=== PATIENT | female | born 1930 | race Native Hawaiian/Other Pacific Islander ===

== ENCOUNTER 2017-06-03 12:15 | Inpatient (IN) | payer MEDICARE, OTHER ==
[~2017-06-03] VITALS: Ht 147.3 cm; Wt 53.3 kg
[~2017-06-03 12:15] MED LIST: ALLER-TEC PO; AMLO2.5T PO; B-COCAP6 PO; CHOL50008 PO; HYDR-3516 PO; IPRASOL INH; LEVO88TA2 PO; LORA1TAB12 PO; METO-309 PO; OMEP20TA PO; STOOL SOFTENERS PO; TRAM50TA PO
[2017-06-03 12:20] VITALS: BP 132/98; PULSE 78; RESP 18; TEMP 97.8
[2017-06-03] MEDS ORDERED: FOLI800T PO (12:23)
[2017-06-03] MEDS ORDERED: CHOL5000 PO (12:23)
--- NOTE | 2017-06-03 12:47 | PD ---
HPI Chief Complaint: abdominal pain Time Seen by Provider: 12:42 Travel History International Travel<30 days: No Contact w/Intl Traveler<30days: No Traveled to known affect area: No History of Present Illness HPI This 86-year-old female has multiple complaints. She's been having burning in her mouth and some vaginal burning for at least a few weeks. She had some nausea this morning and was complaining of some pain across her abdomen. She has a history of pulmonary fibrosis. She went to her doctor this morning for evaluation of this burning. Apparently her urinalysis was negative. She has had an appendectomy in the past. She has a history of anemia. She has frequent coughing. PFSH Past Medical History Anemia: Yes Diminished Hearing: Yes (MAKAH) Genitourinary: Yes (CKD stage 3 ) Herniated Disk: Yes (DEGENERATIVE DISC DISEASE) Hypertension: Yes Respiratory: Yes (PULMONARY FIBROSIS) Immunizations Current: Yes Thyroid Disease: Yes Past Surgical History Eye Surgery: Yes Hysterectomy: Yes Other Surgery: Yes (VAGINAL REPAIR) Social History Alcohol Use: No Tobacco Use: No Substance Use: No Allergies-Medications (Allergen,Severity, Reaction): Coded Allergies: gabapentin (Unverified Allergy, Severe, "I PASS OUT", 06/03/17) shellfish derived (Unverified Allergy, Unknown, 06/03/17) Reported Meds & Prescriptions Reported Meds & Active Scripts Active Reported Guaifenesin 400 Mg Tab 600 Mg PO DAILY Folic Acid 0.8 Mg Tab 800 Mcg PO DAILY Vitamin D3 (Cholecalciferol) 5,000 Unit Cap 5,000 Units PO DAILY Hydrocodone-Acetaminophen 5-325 mg Tab 1 Tab PO Q6H PRN Lorazepam 1 Mg Tab 1-2 Mg PO HS PRN Omeprazole 20 Mg Tab 20 Mg PO DAILY Duoneb (Ipratropium-Albuterol Neb) 0.5-2.5 Mg/3 Ml Neb 1 Nebule INH DAILY [Stool Softeners] 1 Tab PO HS PRN Lopressor (Metoprolol Tartrate) 50 Mg Tab 12.5 Mg PO BID [Aller-Riley] 1 Tab PO DAILY Tramadol (Tramadol HCl) 50 Mg Tab 50 Mg PO Q8HR PRN Levothyroxine (Levothyroxine Sodium) 88 Mcg Tab 88 Mcg PO DAILY B-Complex W/ Folic Acid 1 Cap 1 Cap PO DAILY Amlodipine (Amlodipine Besylate) 2.5 Mg Tab 2.5 Mg PO DAILY PRN FOR SYSTOLIC BP GREATER THAN 160 Review of Systems General / Constitutional: No: Fever, Chills Eyes: No: Diploplia, Blurred Vision HENT: Positive: Headaches Cardiovascular: No: Chest Pain or Discomfort, Palpitations Respiratory: No: Cough Gastrointestinal: Positive: Nausea, Abdominal Pain Genitourinary: No: Urgency Musculoskeletal: No: Myalgias, Arthralgias Skin: No Rash, No Itching Endocrine: No: Heat Intolerance Hematologic/Lymphatic: No: Easy Bruising Physical Exam Narrative GENERAL: Well-developed female. She has a fairly persistent hacking cough SKIN: Focused skin assessment warm/dry. HEAD: Atraumatic. Normocephalic. EYES: Pupils equal and round. No scleral icterus. No injection or drainage. ENT: No nasal bleeding or discharge. Mucous membranes pink and moist. NECK: Trachea midline. No JVD. CARDIOVASCULAR: Regular rate and rhythm. No murmur appreciated. RESPIRATORY: No accessory muscle use. Clear to auscultation. Breath sounds equal bilaterally. GASTROINTESTINAL: Abdomen soft, she has some epigastric and right upper quadrant tenderness, nondistended. Hepatic and splenic margins not palpable. Pelvic: There is slight white discharge. MUSCULOSKELETAL: No obvious deformities. No clubbing. No cyanosis. No edema. NEUROLOGICAL: Awake and alert. No obvious cranial nerve deficits. Motor grossly within normal limits. Normal speech. PSYCHIATRIC: Appropriate mood and affect; insight and judgment normal. Data Data Last Documented VS Vital Signs Date Time Temp Pulse Resp B/P (MAP) Pulse Ox O2 Delivery O2 Flow Rate FiO2 06/03/17 14:14 85 20 174/87 (116) 100 Room Air 06/03/17 12:20 97.8 Orders Orders Electrocardiogram (06/03/17 12:43) Complete Blood Count With Diff (06/03/17 12:43) Comprehensive Metabolic Panel (06/03/17 12:43) Troponin I (06/03/17 12:43) Lipase (06/03/17 12:43) Urinalysis - C+S If Indicated (06/03/17 12:43) Ct Brain W/O Iv Contrast(Rout) (06/03/17 12:43) Ct Abd/Pel W Iv Contrast(Rout) (06/03/17 12:45) Wet Prep Profile (06/03/17 13:30) Ondansetron Inj (Zofran Inj) (06/03/17 14:30) Morphine Inj (Morphine Inj) (06/03/17 14:30) Iohexol 350 Inj (Omnipaque 350 Inj) (06/03/17 14:45) Admit Order (Ed Use Only) (06/03/17 15:37) Labs Laboratory Tests Test 06/03/17 12:58 06/03/17 13:30 06/03/17 15:08 White Blood Count 11.4 TH/MM3 Red Blood Count 3.48 MIL/MM3 Hemoglobin 10.8 GM/DL Hematocrit 32.2 % Mean Corpuscular Volume 92.5 FL Mean Corpuscular Hemoglobin 31.0 PG Mean Corpuscular Hemoglobin Concent 33.5 % Red Cell Distribution Width 13.1 % Platelet Count 420 TH/MM3 Mean Platelet Volume 6.8 FL Neutrophils (%) (Auto) 67.9 % Lymphocytes (%) (Auto) 21.5 % Monocytes (%) (Auto) 6.6 % Eosinophils (%) (Auto) 0.6 % Basophils (%) (Auto) 3.4 % Neutrophils # (Auto) 7.6 TH/MM3 Lymphocytes # (Auto) 2.5 TH/MM3 Monocytes # (Auto) 0.8 TH/MM3 Eosinophils # (Auto) 0.1 TH/MM3 Basophils # (Auto) 0.4 TH/MM3 CBC Comment DIFF FINAL Differential Comment Clue Cells (Wet Prep) NONE SEEN Vaginal Trichomonas (Wet Prep) NONE SEEN Vaginal Yeast (Wet Prep) NONE SEEN Blood Urea Nitrogen 20 MG/DL Creatinine 1.20 MG/DL Random Glucose 99 MG/DL Total Protein 7.8 GM/DL Albumin 3.9 GM/DL Calcium Level 9.9 MG/DL Alkaline Phosphatase 69 U/L Aspartate Amino Transf (AST/SGOT) 31 U/L Alanine Aminotransferase (ALT/SGPT) 22 U/L Total Bilirubin 0.5 MG/DL Sodium Level 122 MEQ/L Potassium Level 3.9 MEQ/L Chloride Level 87 MEQ/L Carbon Dioxide Level 24.3 MEQ/L Anion Gap 11 MEQ/L Estimat Glomerular Filtration Rate 43 ML/MIN Troponin I LESS THAN 0.02 NG/ML Lipase 239 U/L Urine Color YELLOW Urine Turbidity CLEAR Urine pH 7.5 Urine Specific [place] 1.015 Urine Protein NEG mg/dL Urine Glucose (UA) NEG mg/dL Urine Ketones NEG mg/dL Urine Occult Blood MOD Urine Nitrite NEG Urine Bilirubin NEG Urine Leukocyte Esterase NEG Urine RBC 4-9 /hpf Urine Squamous Epithelial Cells 0-5 /hpf Urine Mucus FEW /lpf Microscopic Urinalysis Comment CULT NOT INDICATED MDM Medical Decision Making Medical Screen Exam Complete: Yes Emergency Medical Condition: Yes Medical Record Reviewed: Yes Differential Diagnosis Differential includes cholecystitis, gastritis, Narrative Course Sodium is 122. Patient has previously had hyponatremia though recently she has been normal. She is having symptoms of nausea and headache. A CT scan of the head has been obtained and is read as negative. CT of the abdomen and pelvis does not show any acute process. Diagnosis Primary Impression: Hyponatremia Tae Whitt MD Jun 03, 2017 12:47
[2017-06-03] MEDS ORDERED: GUAI400T8 PO (12:59)
[2017-06-03 13:03] LABS: AUTOMATED NEUTROPHIL # 7.6 TH/MM3 (1.8-7.7); BASOPHIL # 0.4 TH/MM3 (0-0.2); BASOPHIL % 3.4 % (0.0-2.0); EOSINOPHIL # 0.1 TH/MM3 (0-0.4); EOSINOPHIL % 0.6 % (0.0-4.0); HEMATOCRIT 32.2 % (35.0-46.0); LYMPH % 21.5 % (9.0-44.0); LYMPHOCYTE # 2.5 TH/MM3 (1.0-4.8); MEAN CELL VOLUME 92.5 FL (80.0-100.0); MEAN CORPUSCULAR HGB CONC 33.5 % (32.0-36.0); MONO % 6.6 % (0.0-8.0); NEUT % 67.9 % (16.0-70.0); PLATELET COUNT 420 TH/MM3 (150-450); RED BLOOD COUNT 3.48 MIL/MM3 (4.00-5.30); RED CELL DISTRIBUTION WIDTH 13.1 % (11.6-17.2); WHITE BLOOD COUNT 11.4 TH/MM3 (4.0-11.0)
[2017-06-03 13:15] LABS: HEMO FLAGS DIFF FINAL
[2017-06-03 14:10] LABS: ALKALINE PHOSPHATASE 69 U/L (45-117); ALT (GPT) 22 U/L (10-53); ANION GAP 11 MEQ/L (5-15); AST (GOT) 31 U/L (15-37); BICARBONATE 24.3 MEQ/L (21.0-32.0); BLOOD UREA NITROGEN 20 MG/DL (7-18); CHLORIDE 87 MEQ/L (98-107); GLOMERULAR FILTRATION RATE 43 ML/MIN (>89); POTASSIUM 3.9 MEQ/L (3.5-5.1); TOTAL BILIRUBIN ADULT 0.5 MG/DL (0.2-1.0)
[2017-06-03 14:12] LABS: SODIUM (NA) 122 MEQ/L (136-145)
[2017-06-03 14:14] VITALS: BP 174/87; PULSE 85; RESP 20; O2SAT 100
[2017-06-03] MEDS ORDERED: MORPHINE SULFATE 4 MG/ML INJ IV PUSH ONE (14:30)
[2017-06-03] MEDS ORDERED: ONDANSETRON HCL 4 MG/2 ML VIAL IV PUSH ONE (14:30)
[2017-06-03] MEDS ORDERED: IOHEXOL 350 MG/ML 10 ML VIAL (for RAD DIAG) IVCONTRAST ONE (14:45)
--- NOTE | 2017-06-03 15:12 | RADRPT ---
EXAM DATE/TIME: 06/03/2017 14:40 [facility] COMPARISON: No previous studies available for comparison. INDICATIONS : Altered mental status. RADIATION DOSE: 56.38 CTDIvol (mGy) MEDICAL HISTORY : Hypertension. SURGICAL HISTORY : Appendectomy. Oopherectomy. ENCOUNTER: Initial ACUITY: 1 day PAIN SCALE: 0/10 LOCATION: cranial TECHNIQUE: Multiple contiguous axial images were obtained of the head. Using automated exposure control and adj ustment of the mA and/or kV according to patient size, radiation dose was kept as low as reasonably a chievable to obtain optimal diagnostic quality images. DICOM format image data is available electro nically for review and comparison. FINDINGS: CEREBRUM: The ventricles are normal for age. No evidence of midline shift, mass lesion, hemorrhage or acute in farction. No extra-axial fluid collections are seen. POSTERIOR FOSSA: The cerebellum and brainstem are intact. The 4th ventricle is midline. The cerebellopontine angle i s unremarkable. EXTRACRANIAL: The visualized portion of the orbits is intact. SKULL: The calvaria is intact. No evidence of skull fracture. CONCLUSION: Normal examination. Hi Bass MD on June 03, 2017 at 15:10 Board Certified Radiologist. This report was verified electronically.
--- NOTE | 2017-06-03 15:13 | RADRPT ---
EXAM DATE/TIME: 06/03/2017 14:45 [facility] COMPARISON: No previous studies available for comparison. INDICATIONS : Right abdominal pain and burning with urination. IV CONTRAST: 85 cc Omnipaque 350 (iohexol) IV ORAL CONTRAST: No oral contrast ingested. RADIATION DOSE: 7.99 CTDIvol (mGy) MEDICAL HISTORY : Hypertension. SURGICAL HISTORY : Appendectomy. Oopherectomy. ENCOUNTER: Initial ACUITY: 1 day PAIN SCALE: 5/10 LOCATION: Right abdomen TECHNIQUE: Volumetric scanning of the abdomen and pelvis was performed. Using automated exposure control and ad justment of the mA and/or kV according to patient size, radiation dose was kept as low as reasonably achievable to obtain optimal diagnostic quality images. DICOM format image data is available electro nically for review and comparison. FINDINGS: There is subpleural interstitial prominence at the lung bases and respiratory motion artifact. Degene rative changes of the spine are noted. No pleural or pericardial effusions. Liver, gallbladder, bilat eral kidneys, spleen, pancreas, adrenal glands are unremarkable. Urinary bladder is unremarkable. The patient is status post hysterectomy. No evidence of bowel obstruction. A few diverticuli are noted i n the sigmoid colon. There is no lymphadenopathy. No aneurysm. Atherosclerotic calcifications of the aorta and iliac vessels are noted. CONCLUSION: 1. Atherosclerosis. 2. Motion artifact. 3. Minimal diverticulosis of the sigmoid colon. 4. All the ulnar interstitial prominence. 5. No obvious inflammatory changes in the abdomen or pelvis. Hi Bass MD on June 03, 2017 at 15:10 Board Certified Radiologist. This report was verified electronically.
[2017-06-03 15:14] LABS: BLOOD, URINE MOD (NEG); GLUCOSE,URINE NEG (NEG); KETONE, URINE NEG (NEG); NITRITE,URINE NEG (NEG); PH, URINE 7.5 (5.0-8.5)
[2017-06-03 15:38] LABS: MUCUS URINE FEW /lpf (OCC); URINE COLOR YELLOW (YELLW/STRAW)
[2017-06-03 15:39] LABS: COMMENT (UR) CULT NOT INDICATED; CULTURE IF INDICATED CULT NOT INDICATED; SQUAMOUS EPITHELIAL CELL URINE 0-5 /hpf (0-5)
[2017-06-03] MEDS ORDERED: traMADol HCL 50 MG TAB PO PRN (16:30)
[2017-06-03] MEDS ORDERED: SODIUM CHLORIDE 0.9% FLUSH 10 ML FLUSH IV FLUSH PRN (16:30)
[2017-06-03] MEDS ORDERED: amLODIPine BESYLATE 5 MG TAB PO PRN (16:30)
[2017-06-03] MEDS ORDERED: NALOXONE HCL 0.4 MG/ML AMP IV PUSH PRN (16:30)
[2017-06-03] MEDS ORDERED: PILL SPLITTER OTHER PRN (16:45)
[2017-06-03] MEDS: SODIUM CHLOR 0.9% 1000 ML INJ 1,000 ML IV SCH (17:00)
[2017-06-03 17:07] VITALS: BP 170/57
[2017-06-03 18:00] VITALS: BP 183/83; PULSE 88; RESP 24; TEMP 96.5; O2SAT 100
--- NOTE | 2017-06-03 18:14 | HHI.HP ---
[facility] Service [facility] Primary Care Physician Med Woo MD Admission Diagnosis HYPONATREMIA Diagnoses: Chief Complaint: Nausea Travel History International Travel<30 Days: No Contact w/Intl Traveler <30 Da: No Traveled to Known Affected Are: No History of Present Illness Patient is a very pleasant 86-year-old female with a history of chronic pulmonary fibrosis and chronic osteoarthritis and chronic kidney disease. Patient was seen well and without complaint yesterday afternoon by her caregiver. Today she had abdominal discomfort and nausea. She had a primary doctor's appointment today and was sent urgently to the hospital. She is hyponatremic which is not unusual for her. I spoke with her primary auto air conditioning installer and her renal function is about at baseline. She has complained of chills without fever. She notes that the nausea has subsided on its own. She has chronic coughing, and there is nothing new per the patient symptomatically with her respiratory system. 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 She is a good historian although she uses hearing aids. She has continued with her medications without incident. Patient been admitted to the hospital due to her hyponatremia Review of Systems Constitutional: DENIES: Diaphoretic episodes, Fatigue, Fever, Weight gain, Weight loss, Chills, Dizziness, Change in appetite, Night Sweats Endocrine: DENIES: Abnorml menstrual pattern, Heat/cold intolerance, Polydipsia , Polyuria, Polyphagia Eyes: DENIES: Blurred vision, Diplopia, Eye inflammation, Eye pain, Vision loss , Photosensitivity, Double Vision Ears, nose, mouth, throat: DENIES: Tinnitus, Hearing loss, Vertigo, Nasal discharge, Oral lesions, Throat pain, Hoarseness, Ear Pain, Running Nose, Epistaxis, Sinus Pain, Toothache, Odynophagia Respiratory: DENIES: Apneas, Cough, Snoring, Wheezing, Hemoptysis, Sputum production, Shortness of breath Cardiovascular: DENIES: Chest pain, Palpitations, Syncope, Dyspnea on Exertion , PND, Lower Extremity Edema, Orthopnea, Claudication Gastrointestinal: COMPLAINS OF: Nausea, Vomiting, DENIES: Abdominal pain, Black stools, Bloody stools, Constipation, Diarrhea, Difficulty Swallowing, Anorexia Genitourinary: DENIES: Abnormal vaginal bleeding, Dysmenorrhea, Dyspareunia, Sexual dysfunction, Urinary frequency, Urinary incontinence, Urgency, Hematuria , Dysuria, Nocturia, Vaginal discharge Musculoskeletal: DENIES: Joint pain, Muscle aches, Stiffness, Joint Swelling, Back pain, Neck pain Integumentary: DENIES: Abnormal pigmentation, Pruritus, Rash, Nail changes, Breast masses, Breast skin changes, Nipple discharge Hematologic/lymphatic: DENIES: Bruising, Lymphadenopathy Immunologic/allergic: DENIES: Eczema, Urticaria Neurologic: DENIES: Abnormal gait, Headache, Localized weakness, Paresthesias, Seizures, Speech Problems, Tremor, Poor Balance Psychiatric: DENIES: Anxiety, Confusion, Mood changes, Depression, Hallucinations, Agitation, Suicidal Ideation, Homicidal Ideation, Delusions Except as stated in HPI: all other systems reviewed are Neg Past Family Social History Past Medical History Pulmonary fibrosis Chronic pain Degenerative arthritis Chronic kidney disease Hypothyroidism Past Surgical History Vaginal repair Cataract surgery Reported Medications Reviewed in the EMR, nothing new per patient Allergies: Coded Allergies: gabapentin (Unverified Allergy, Severe, "I PASS OUT", 06/03/17) shellfish derived (Unverified Allergy, Unknown, 06/03/17) Active Ordered Medications Reviewed in the EMR Family History Family history of hypertension Social History No current tobacco or alcohol dependency, lives with 2 caregivers Physical Exam Vital Signs Vital Signs Date Time Temp Pulse Resp B/P (MAP) Pulse Ox O2 Delivery O2 Flow Rate FiO2 06/03/17 17:07 80 18 170/57 (94) 100 06/03/17 14:14 85 20 174/87 (116) 100 Room Air 06/03/17 12:20 97.8 78 18 132/98 (109) Physical Exam GENERAL: This is a well-nourished, well-developed patient, in no apparent distress. SKIN: No rashes, ecchymoses or lesions. Cool and dry. HEAD: Atraumatic. Normocephalic. No temporal or scalp tenderness. EYES: Pupils equal round and reactive. Extraocular motions intact. No scleral icterus. No injection or drainage. ENT: Nose without bleeding, purulent drainage or septal hematoma. Throat without erythema, tonsillar hypertrophy or exudate. Uvula midline. Airway patent. NECK: Trachea midline. No JVD or lymphadenopathy. Supple, nontender, no meningeal signs. CARDIOVASCULAR: Regular rate and rhythm without murmurs, gallops, or rubs. RESPIRATORY: Clear to auscultation. Breath sounds equal bilaterally. No wheezes , rales, or rhonchi. GASTROINTESTINAL: Abdomen soft, non-tender, nondistended. No hepato-splenomegaly , or palpable masses. No guarding. MUSCULOSKELETAL: Extremities without clubbing, cyanosis, or edema. No joint tenderness, effusion, or edema noted. No calf tenderness. Negative Homans sign bilaterally. NEUROLOGICAL: Awake and alert. Cranial nerves II through XII intact. Motor and sensory grossly within normal limits. Five out of 5 muscle strength in all muscle groups. Normal speech. Laboratory Laboratory Tests Test 06/03/17 12:58 06/03/17 13:30 06/03/17 15:08 White Blood Count 11.4 Red Blood Count 3.48 Hemoglobin 10.8 Hematocrit 32.2 Mean Corpuscular Volume 92.5 Mean Corpuscular Hemoglobin 31.0 Mean Corpuscular Hemoglobin Concent 33.5 Red Cell Distribution Width 13.1 Platelet Count 420 Mean Platelet Volume 6.8 Neutrophils (%) (Auto) 67.9 Lymphocytes (%) (Auto) 21.5 Monocytes (%) (Auto) 6.6 Eosinophils (%) (Auto) 0.6 Basophils (%) (Auto) 3.4 Neutrophils # (Auto) 7.6 Lymphocytes # (Auto) 2.5 Monocytes # (Auto) 0.8 Eosinophils # (Auto) 0.1 Basophils # (Auto) 0.4 CBC Comment DIFF FINAL Differential Comment Clue Cells (Wet Prep) NONE SEEN Vaginal Trichomonas (Wet Prep) NONE SEEN Vaginal Yeast (Wet Prep) NONE SEEN Blood Urea Nitrogen 20 Creatinine 1.20 Random Glucose 99 Total Protein 7.8 Albumin 3.9 Calcium Level 9.9 Alkaline Phosphatase 69 Aspartate Amino Transf (AST/SGOT) 31 Alanine Aminotransferase (ALT/SGPT) 22 Total Bilirubin 0.5 Sodium Level 122 Potassium Level 3.9 Chloride Level 87 Carbon Dioxide Level 24.3 Anion Gap 11 Estimat Glomerular Filtration Rate 43 Troponin I LESS THAN 0.02 Lipase 239 Urine Color YELLOW Urine Turbidity CLEAR Urine pH 7.5 Urine Specific [place] 1.015 Urine Protein NEG Urine Glucose (UA) NEG Urine Ketones NEG Urine Occult Blood MOD Urine Nitrite NEG Urine Bilirubin NEG Urine Leukocyte Esterase NEG Urine RBC 4-9 Urine Squamous Epithelial Cells 0-5 Urine Mucus FEW Microscopic Urinalysis Comment CULT NOT INDICATED Result Diagram: 06/03/17 1258 06/03/17 1330 Imaging Last Impressions Abdomen/Pelvis CT 06/03/17 1245 Signed Impressions: Service Date/Time: Saturday, June 03, 2017 14:45 - CONCLUSION: 1. Atherosclerosis. 2. Motion artifact. 3. Minimal diverticulosis of the sigmoid colon. 4. All the ulnar interstitial prominence. 5. No obvious inflammatory changes in the abdomen or pelvis. Hi Bass MD Head CT 06/03/17 1243 Signed Impressions: Service Date/Time: Saturday, June 03, 2017 14:40 - CONCLUSION: Normal examination. Hi Bass MD Caprini VTE Risk Assessment Caprini VTE Risk Assessment: Mod/High Risk (score >= 2) Caprini Risk Assessment Model Point Value = 1 Point Value = 2 Point Value = 3 Point Value = 5 Age 41-60 Minor surgery BMI > 25 kg/m2 Swollen legs Varicose veins or History of unexplained or recurrent spontaneous Oral contraceptives or hormone replacement Sepsis (< 1 month) Serious lung disease, including pneumonia (< 1 month) Abnormal pulmonary function Acute myocardial infarction Congestive heart failure (< 1 month) History of inflammatory bowel disease Medical patient at bed rest Age 61-74 Arthroscopic surgery Major open surgery (> 45 min) Laparoscopic surgery (> 45 min) Malignancy Confined to bed (> 72 hours) Immobilizing plaster cast Central venous access Age >= 75 History of VTE Family history of VTE Factor V Leiden Prothrombin [id number] Lupus anticoagulant Anticardiolipin antibodies Elevated serum homocysteine Heparin-induced thrombocytopenia Other congenital or acquired thrombophilia Stroke (< 1 month) Elective arthroplasty Hip, pelvis, or leg fracture Acute spinal cord injury (< 1 month) Prophylaxis Regimen Total Risk Factor Score Risk Level Prophylaxis Regimen 0-1 Low Early ambulation 2 Moderate Order ONE of the following: *Sequential Compression Device (SCD) *Heparin 5000 units SQ BID 3-4 Higher Order ONE of the following medications: *Heparin 5000 units SQ TID *Enoxaparin/Lovenox 40 mg SQ daily (WT < 150 kg, CrCl > 30 mL/min) *Enoxaparin/Lovenox 30 mg SQ daily (WT < 150 kg, CrCl > 10-29 mL/min) *Enoxaparin/Lovenox 30 mg SQ BID (WT < 150 kg, CrCl > 30 mL/min) AND/OR *Sequential Compression Device (SCD) 5 or more Highest Order ONE of the following medications: *Heparin 5000 units SQ TID (Preferred with Epidurals) *Enoxaparin/Lovenox 40 mg SQ daily (WT < 150 kg, CrCl > 30 mL/min) *Enoxaparin/Lovenox 30 mg SQ daily (WT < 150 kg, CrCl > 10-29 mL/min) *Enoxaparin/Lovenox 30 mg SQ BID (WT < 150 kg, CrCl > 30 mL/min) AND *Sequential Compression Device (SCD) Assessment and Plan Problem List: (1) Weakness ICD Code: R53.1 - Weakness Plan: Likely due to chronic medical problems, will follow-up for organic issues Continue with PT/OT eval Continue home medications for thyroid disease and for chronic medical problems (2) Pulmonary fibrosis ICD Code: J84.10 - Pulmonary fibrosis, unspecified Plan: Continue patient's respiratory treatments, no evidence of decompensation at this time (3) CKD (chronic kidney disease) ICD Code: N18.9 - Chronic kidney disease, unspecified Plan: Care plan discussed with her primary doctor Dr. taylor, renal function about baseline. Continue with home medications and follow urine output Avoid nephrotoxins Urinalysis within normal limits (4) Elevated blood pressure reading ICD Code: R03.0 - Elevated blood-pressure reading, without diagnosis of hypertension Plan: May be underlying hypertension We'll add Norvasc Code Status full code Discussed Condition With ER MD, patient, primary care md Physician Certification 2 Midnight Certification Type: Admission for Inpatient Services Order for Inpatient Services The services are ordered in accordance with Medicare regulations or non- Medicare payer requirements, as applicable. In the case of services not specified as inpatient-only, they are appropriately provided as inpatient services in accordance with the 2-midnight benchmark. Estimated LOS (days): 3 3 days is the estimated time the patient will need to remain in the hospital, assuming treatment plan goals are met and no additional complications. Post-Hospital Plan: Not yet determined Nirmala Howell MD Jun 03, 2017 18:14
[2017-06-03] MEDS ORDERED: amLODIPine BESYLATE 5 MG TAB PO ONE (18:15)
[2017-06-03] MEDS: PANTOPRAZOLE SOD 40 MG DELAYED RELEASE TAB PO SCH (18:27)
[2017-06-03] MEDS: HEPARIN SODIUM - SQ 10,000 UNITS/ML VIAL SQ SCH (18:27)
[2017-06-03 20:00] VITALS: BP 119/56; PULSE 78; RESP 20; TEMP 96.2; O2SAT 99
[2017-06-03] MEDS: RESP: ALBUTEROL 2.5 MG/IPRATROPIUM 0.5 MG NEB (SCH) NEB (20:07)
[2017-06-03] MEDS: METOPROLOL TARTRATE 25 MG TAB PO SCH (20:11)
[2017-06-03] MEDS: SODIUM CHLORIDE 0.9% FLUSH 10 ML FLUSH IV FLUSH SCH (20:12)
[2017-06-04] MEDS: SODIUM CHLOR 0.9% 1000 ML INJ 1,000 ML IV SCH (02:40)
[2017-06-04] MEDS: HEPARIN SODIUM - SQ 10,000 UNITS/ML VIAL SQ SCH (05:09)
[2017-06-04] MEDS ORDERED: LEVOTHYROXINE SODIUM 88 MCG TAB PO SCH (06:00)
[2017-06-04] MEDS: RESP: ALBUTEROL 2.5 MG/IPRATROPIUM 0.5 MG NEB (SCH) NEB ×2 (07:58→13:13)
[2017-06-04 08:00] VITALS: BP 194/79; PULSE 96; RESP 20; TEMP 98; O2SAT 100
[2017-06-04 08:41] LABS: AUTOMATED NEUTROPHIL # 5.7 TH/MM3 (1.8-7.7); BASOPHIL # 0.1 TH/MM3 (0-0.2); BASOPHIL % 0.6 % (0.0-2.0); EOSINOPHIL # 0.2 TH/MM3 (0-0.4); EOSINOPHIL % 1.9 % (0.0-4.0); HEMATOCRIT 27.3 % (35.0-46.0); HEMO FLAGS DIFF FINAL; LYMPH % 26.5 % (9.0-44.0); LYMPHOCYTE # 2.5 TH/MM3 (1.0-4.8); MEAN CELL VOLUME 92.5 FL (80.0-100.0); MEAN CORPUSCULAR HEMOGLOBIN 30.7 PG (27.0-34.0); MEAN CORPUSCULAR HGB CONC 33.2 % (32.0-36.0); MONO % 8.8 % (0.0-8.0); NEUT % 62.2 % (16.0-70.0); PLATELET COUNT 380 TH/MM3 (150-450); RED BLOOD COUNT 2.95 MIL/MM3 (4.00-5.30); RED CELL DISTRIBUTION WIDTH 13.3 % (11.6-17.2); WHITE BLOOD COUNT 9.3 TH/MM3 (4.0-11.0)
[2017-06-04] MEDS ORDERED: amLODIPine BESYLATE 5 MG TAB PO SCH (09:00)
[2017-06-04] MEDS: PANTOPRAZOLE SOD 40 MG DELAYED RELEASE TAB PO SCH (09:12)
[2017-06-04] MEDS: SODIUM CHLORIDE 0.9% FLUSH 10 ML FLUSH IV FLUSH SCH (09:12)
[2017-06-04] MEDS: METOPROLOL TARTRATE 25 MG TAB PO SCH (09:12)
[2017-06-04] MEDS ORDERED: NAPHAZOLINE HCL 0.012% OPHT SOLN 15 ML BOTTLE EACH EYE ONE (10:15)
--- NOTE | 2017-06-04 11:15 | HHI.DCPOC ---
Discharge Care Plan Diagnosis: (1) Hyponatremia Goals to Promote Your Health * To prevent worsening of your condition and complications * To maintain your health at the optimal level Directions to Meet Your Goals Take your medications as prescribed Follow your dietary instruction Follow activity as directed Keep your appointments as scheduled Take your immunizations and boosters as scheduled If your symptoms worsen call your PCP, if no PCP go to Urgent Care Center or Emergency Room Smoking is Dangerous to Your Health. Avoid second hand smoke Call the 24-hour hour crisis hotline for domestic abuse at Nirmala Howell MD Jun 04, 2017 11:15
--- NOTE | 2017-06-04 11:15 | HHI.FF ---
Face to Face Verification Diagnosis: (1) Pulmonary fibrosis (2) Weakness Physical Therapy Order: Evaluate and Treat, Improve ambulation, Strength and gait training Home Health Nursing Order: Signs/symptoms of disease process I have seen patient Marilyn Joshi on 06/04/17. My clinical findings support the need for the requested home health care services because: Ltd mobility - disease progression Patient has SOB I certify that my clinical findings support that this patient is homebound because: Unsteady gait/balance Nirmala Howell MD Jun 04, 2017 11:15
--- NOTE | 2017-06-04 11:18 | HHI.DS ---
cc: Geo White MD Discharge Summary Admission Date Jun 03, 2017 at 15:38 Discharge Date: Jun 04, 2017 Admitting Diagnosis HYPONATREMIA (1) Weakness ICD Code: R53.1 - Weakness (2) Pulmonary fibrosis ICD Code: J84.10 - Pulmonary fibrosis, unspecified (3) CKD (chronic kidney disease) ICD Code: N18.9 - Chronic kidney disease, unspecified (4) Elevated blood pressure reading ICD Code: R03.0 - Elevated blood-pressure reading, without diagnosis of hypertension Procedures none Brief History - From Admission Patient is a very pleasant 86-year-old female with a history of chronic pulmonary fibrosis and chronic osteoarthritis and chronic kidney disease. Patient was seen well and without complaint yesterday afternoon by her caregiver. Today she had abdominal discomfort and nausea. She had a primary doctor's appointment today and was sent urgently to the hospital. She is hyponatremic which is not unusual for her. I spoke with her primary manager etl and her renal function is about at baseline. She has complained of chills without fever. She notes that the nausea has subsided on its own. She has chronic coughing, and there is nothing new per the patient symptomatically with her respiratory system. 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 She is a good historian although she uses hearing aids. She has continued with her medications without incident. Patient been admitted to the hospital due to her hyponatremia CBC/BMP: 06/04/17 0833 06/04/17 0833 Significant Findings Laboratory Tests Test 06/03/17 12:58 06/03/17 13:30 06/03/17 15:08 06/04/17 08:33 White Blood Count 11.4 TH/MM3 (4.0-11.0) Red Blood Count 3.48 MIL/MM3 (4.00-5.30) 2.95 MIL/MM3 (4.00-5.30) Hemoglobin 10.8 GM/DL (11.6-15.3) 9.1 GM/DL (11.6-15.3) Hematocrit 32.2 % (35.0-46.0) 27.3 % (35.0-46.0) Mean Platelet Volume 6.8 FL (7.0-11.0) 6.3 FL (7.0-11.0) Basophils (%) (Auto) 3.4 % (0.0-2.0) Basophils # (Auto) 0.4 TH/MM3 (0-0.2) Blood Urea Nitrogen 20 MG/DL (7-18) Creatinine 1.20 MG/DL (0.50-1.00) 1.10 MG/DL (0.50-1.00) Sodium Level 122 MEQ/L (136-145) 130 MEQ/L (136-145) Chloride Level 87 MEQ/L (98-107) Estimat Glomerular Filtration Rate 43 ML/MIN (>89) 47 ML/MIN (>89) Troponin I LESS THAN 0.02 NG/ML Urine Occult Blood MOD (NEG) Urine RBC 4-9 /hpf (0-3) Urine Mucus FEW /lpf (OCC) Monocytes (%) (Auto) 8.8 % (0.0-8.0) Random Glucose 110 MG/DL (74-106) Imaging Last Impressions Abdomen/Pelvis CT 06/03/17 1245 Signed Impressions: Service Date/Time: Saturday, June 03, 2017 14:45 - CONCLUSION: 1. Atherosclerosis. 2. Motion artifact. 3. Minimal diverticulosis of the sigmoid colon. 4. All the ulnar interstitial prominence. 5. No obvious inflammatory changes in the abdomen or pelvis. Hi Bass MD Head CT 06/03/17 1243 Signed Impressions: Service Date/Time: Saturday, June 03, 2017 14:40 - CONCLUSION: Normal examination. Hi Bass MD PE at Discharge GENERAL: This is a frail elderly, well-developed patient, in no apparent distress. CARDIOVASCULAR: Regular rate and rhythm without murmurs, gallops, or rubs. RESPIRATORY: Breath sounds equal bilaterally. No wheezes, rales, or rhonchi. GASTROINTESTINAL: Abdomen soft, non-tender, nondistended. Normal active bowel sounds MUSCULOSKELETAL: right arm splint. Extremities without clubbing, cyanosis, or edema. NEURO: Alert & Oriented x4 to person, place, time, situation. Moves all ext x4 Pt update on day of discharge Patient seen today in follow-up for weakness and hyponatremia. Sodium improved with IV hydration. Patient planning of dry eyes improved with eyedrops. Distress plan discussed with patient, [facility] nursing and patient. Patient will require physical therapy home health. 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 She was hyponatremic and her sodium improved with IV hydration. Her renal function is at baseline. Patient did well. She required physical therapy at discharge is was arranged with home health. Care plans discussed with patient and care provider Pt Condition on Discharge: Good Discharge Disposition: Disch w/ Home Health Serv Discharge Time: <= 30 minutes Discharge Instructions DIET: Follow Instructions for: As Tolerated, No Restrictions Activities you can perform: Regular-No Restrictions Follow up Referrals: PCP Follow-up - 1 Week Continued Medications: Amlodipine (Amlodipine) 2.5 Mg Tab 2.5 MG PO DAILY PRN for INCREASE IN BLOOD PRESSURE, #30 TAB 0 Refills FOR SYSTOLIC BP GREATER THAN 160 B-Complex W/ Folic Acid (B-Complex W/ Folic Acid) 1 Cap 1 CAP PO DAILY for Nutritional Supplement, CAP Cholecalciferol (Vitamin D3) 5,000 Unit Cap 5000 UNITS PO DAILY for Nutritional Supplement, #30 CAP 0 Refills Folic Acid (Folic Acid) 0.8 Mg Tab 800 MCG PO DAILY for Nutritional Supplement, TAB 0 Refills Guaifenesin (Guaifenesin) 400 Mg Tab 600 MG PO DAILY Hydrocodone-Acetaminophen (Hydrocodone-Acetaminophen) 5-325 mg Tab 1 TAB PO Q6H PRN for PAIN, TAB 0 Refills Ipratropium-Albuterol Neb (Duoneb) 0.5-2.5 Mg/3 Ml Neb 1 NEBULE INH DAILY for Breathing Treatment, #30 NEBULE 0 Refills Levothyroxine (Levothyroxine) 88 Mcg Tab 88 MCG PO DAILY for Thyroid, #30 TAB 0 Refills Lorazepam (Lorazepam) 1 Mg Tab 1-2 MG PO HS PRN for ANXIETY AND/OR INSOMNIA, TAB 0 Refills Metoprolol Tartrate (Lopressor) 50 Mg Tab 12.5 MG PO BID for Blood Pressure Management, #30 TAB 0 Refills Omeprazole (Omeprazole) 20 Mg Tab 20 MG PO DAILY, #30 TAB 0 Refills Tramadol (Tramadol) 50 Mg Tab 50 MG PO Q8HR PRN for PAIN, TAB 0 Refills [Aller-Riley] () 1 TAB PO DAILY for Allergies [Stool Softeners] () 1 TAB PO HS PRN for CONSTIPATION Nirmala Howell MD Jun 04, 2017 11:18
[2017-06-04] MEDS ORDERED: WHEEMIS3 (11:20)
[2017-06-04] MEDS ORDERED: cloNIDine HCL 0.1 MG TAB PO PRN (11:30)
[2017-06-04 12:00] VITALS: BP 106/52; PULSE 77; RESP 20; TEMP 95.8; O2SAT 98
--- NOTE | 2017-06-04 12:12 | EKG ---
Date Performed: 06/03/2017 Time Performed: 13:04:03 PTAGE: 86 years EKG: Sinus rhythm MODERATE ST DEPRESSION ABNORMAL ECG PREVIOUS TRACING : 02/24/[address] 16.[address] depression is new from the prior tracing. Clinical corre lation needed for ischemia. DOCTOR: Willie Oden Interpretating Date/Time 06/04/2017 12:09:59
[2017-06-04] MEDS ORDERED: COMMODE 3-IN-11 MIS (12:15)
== END 2017-06-04 14:30 | disposition home health service (06) | DRG 641 ==
LOC: PHED 12:15 → PHEDA 15:38 → PH3B 17:12
PROVIDERS: ADMIT Hospitalist; ATTEND Hospitalist
DX: E87.1 Hypo-osmolality and hyponatremia (principal); J84.10 Pulmonary fibrosis, unspecified; N18.3 Chronic kidney disease, stage 3 (moderate); I12.9 Hypertensive chronic kidney disease with stage 1 through stage 4 chronic kidney disease, or unspecified chronic kidney disease; H91.90 Unspecified hearing loss, unspecified ear; M19.90 Unspecified osteoarthritis, unspecified site; E03.9 Hypothyroidism, unspecified; R11.0 Nausea
CPT/HCPCS: 70450; 74177; 80048; 80053; 81001; 83690; 84484; 85025; 87210; 93005; 94640; 94664; 96374; 96375; J1644; J2270; J2405; J7030; Q9967

== ENCOUNTER 2017-07-18 14:17 | Emergency (ER) | payer MEDICARE, OTHER ==
[~2017-07-18] VITALS: Ht 147.3 cm; Wt 51.5 kg
[~2017-07-18 14:17] MED LIST changes: +CHOL5000 PO; -CHOL50008 PO; +COMMODE 3-IN-11 MIS; +FOLI800T PO; +GUAI400T32 PO; -OMEP20TA PO; +OMEP20TA93 PO; +WHEEMIS3
[2017-07-18 14:27] VITALS: BP 136/85; PULSE 92; RESP 18; TEMP 96.9; O2SAT 99
[2017-07-18] MEDS ORDERED: SODIUM CHLORIDE 0.9% FLUSH 10 ML FLUSH IVF PRN (15:15)
[2017-07-18] MEDS ORDERED: FOLI1CAP7 (15:53)
[2017-07-18] MEDS ORDERED: FURO1TAB62 PO (15:53)
[2017-07-18] MEDS ORDERED: MULT10CA (15:53)
[2017-07-18] MEDS ORDERED: HYDR-3801 PO (15:53)
[2017-07-18] MEDS ORDERED: SENO8.6T5 PO (15:53)
[2017-07-18 16:52] LABS: AUTOMATED NEUTROPHIL # 8.1 TH/MM3 (1.8-7.7); BASOPHIL # 0.2 TH/MM3 (0-0.2); BASOPHIL % 1.3 % (0.0-2.0); EOSINOPHIL # 0.1 TH/MM3 (0-0.4); EOSINOPHIL % 0.7 % (0.0-4.0); HEMATOCRIT 31.7 % (35.0-46.0); LYMPH % 19.4 % (9.0-44.0); LYMPHOCYTE # 2.3 TH/MM3 (1.0-4.8); MEAN CELL VOLUME 93.2 FL (80.0-100.0); MEAN CORPUSCULAR HEMOGLOBIN 30.1 PG (27.0-34.0); MEAN CORPUSCULAR HGB CONC 32.3 % (32.0-36.0); MONO % 7.5 % (0.0-8.0); NEUT % 71.1 % (16.0-70.0); PLATELET COUNT 412 TH/MM3 (150-450); RED CELL DISTRIBUTION WIDTH 13.6 % (11.6-17.2); WHITE BLOOD COUNT 11.6 TH/MM3 (4.0-11.0)
[2017-07-18 17:19] LABS: HEMO FLAGS AUTO DIFF
[2017-07-18 17:48] LABS: BICARBONATE 26.1 MEQ/L (21.0-32.0); SCAN/DIFF AUTO DIFF CONFIRMED
[2017-07-18 17:49] VITALS: O2SAT 98
[2017-07-18 17:50] VITALS: BP 162/76; PULSE 105; RESP 16; O2SAT 98
--- NOTE | 2017-07-18 18:28 | PD ---
HPI Chief Complaint: Hypertension Time Seen by Provider: 14:54 Travel History International Travel<30 days: No Contact w/Intl Traveler<30days: No Traveled to known affect area: No History of Present Illness HPI Patient's 87 years old. She arrives today due to tachycardia and hypertension observed at home on home monitoring system. Blood pressure is reported to be about 180/90 and the heart rate was reported to be 150. The patient's care provider called Dr Bowden who advised evaluation in the ER. Here she offers no new specific complaint. She mentions a chronic oral mucosa type pain related to chronic excessive oxygenation. She has no chest pain or shortness of breath. She complains of pain in the right wrist chronic in nature following all traumatic injury. PFSH Past Medical History Anemia: Yes Cancer: No Cardiovascular Problems: Yes (htn on meds) Diminished Hearing: Yes (TANGIR[place]Q) Gastrointestinal Disorders: Yes (ISCHEMIC COLITIS ) GERD: Yes Genitourinary: Yes Herniated Disk: Yes (DEGENERATIVE DISC DISEASE) Hypertension: Yes Musculoskeletal: Yes Neurologic: Yes Psychiatric: No Reproductive: No Respiratory: Yes (copd) Immunizations Current: Yes Thyroid Disease: Yes Tetanus Vaccination: Unknown ?: Not Past Surgical History Eye Surgery: Yes (CATARACTS/LENSES ) Gynecologic Surgery: Yes (HYSTERECTOMY ) Hysterectomy: Yes Oral Surgery: Yes (TONSILS AND WISDOM TEETH REMOVAL ) Other Surgery: Yes (VAGINAL REPAIR) Social History Alcohol Use: No Tobacco Use: No Substance Use: No Allergies-Medications (Allergen,Severity, Reaction): Coded Allergies: gabapentin (Unverified Allergy, Severe, "I PASS OUT", 07/18/17) shellfish derived (Unverified Allergy, Unknown, 07/18/17) Reported Meds & Prescriptions Reported Meds & Active Scripts Active Commode 3-in-1 (Device) 1 Mis Mis Ea .ROUTE DIRECTED Reported Preservision Areds 2 Softgel (Vit C/E/Zn/Coppr/Lutein/Zeaxan) 250-200-40 Capsule Folic Acid 0.8 Mg Capsule Senokot (Sennosides) 8.6 Mg Tab 8.6 Mg PO DAILY Lasix (Furosemide) 20 Mg Tab 20 Mg PO DAILY Hydralazine (Hydralazine HCl) 100 Mg Tab 100 Mg PO BID Take with meals Guaifenesin 400 Mg Tab 600 Mg PO DAILY Vitamin D3 (Cholecalciferol) 5,000 Unit Cap 5,000 Units PO DAILY Lorazepam 1 Mg Tab 1-2 Mg PO HS PRN Omeprazole 20 Mg Tab 20 Mg PO DAILY [Stool Softeners] 1 Tab PO HS PRN [Aller-Riley] 1 Tab PO DAILY Tramadol (Tramadol HCl) 50 Mg Tab 50 Mg PO Q8HR PRN Levothyroxine (Levothyroxine Sodium) 88 Mcg Tab 88 Mcg PO DAILY Physical Exam Narrative GENERAL: Well-nourished well-developed 87 year female no acute distress SKIN: Warm and dry. HEAD: Atraumatic. Normocephalic. EYES: Pupils equal and round. No scleral icterus. No injection or drainage. ENT: No nasal bleeding or discharge. Mucous membranes pink and moist. NECK: Trachea midline. No JVD. CARDIOVASCULAR: Regular rate and rhythm. RESPIRATORY: No accessory muscle use. Clear to auscultation. Breath sounds equal bilaterally. GASTROINTESTINAL: Abdomen soft, non-tender, nondistended. Hepatic and splenic margins not palpable. MUSCULOSKELETAL: Extremities without clubbing, cyanosis, or edema. No obvious deformities. NEUROLOGICAL: Awake and alert. No obvious cranial nerve deficits. Motor grossly within normal limits. Five out of 5 muscle strength in the arms and legs. Normal speech. PSYCHIATRIC: Appropriate mood and affect; insight and judgment normal. Data Data Last Documented VS Vital Signs Date Time Temp Pulse Resp B/P (MAP) Pulse Ox O2 Delivery O2 Flow Rate FiO2 07/18/17 19:26 103 20 175/73 (107) 99 07/18/17 14:27 96.9 vital signs reviewed Orders Orders Electrocardiogram (07/18/17 15:01) Basic Metabolic Panel (Bmp) (07/18/17 15:01) Complete Blood Count With Diff (07/18/17 15:01) Ecg Monitoring (07/18/17 15:01) Iv Access Insert/Monitor (07/18/17 15:01) Oximetry (07/18/17 15:01) Sodium Chloride 0.9% Flush (Ns Flush) (07/18/17 15:15) Ed Discharge Order (07/18/17 18:29) Lorazepam (Ativan) (07/18/17 19:15) Labs Laboratory Tests Test 07/18/17 16:15 White Blood Count 11.6 TH/MM3 Red Blood Count 3.40 MIL/MM3 Hemoglobin 10.2 GM/DL Hematocrit 31.7 % Mean Corpuscular Volume 93.2 FL Mean Corpuscular Hemoglobin 30.1 PG Mean Corpuscular Hemoglobin Concent 32.3 % Red Cell Distribution Width 13.6 % Platelet Count 412 TH/MM3 Mean Platelet Volume 7.9 FL Neutrophils (%) (Auto) 71.1 % Lymphocytes (%) (Auto) 19.4 % Monocytes (%) (Auto) 7.5 % Eosinophils (%) (Auto) 0.7 % Basophils (%) (Auto) 1.3 % Neutrophils # (Auto) 8.1 TH/MM3 Lymphocytes # (Auto) 2.3 TH/MM3 Monocytes # (Auto) 0.9 TH/MM3 Eosinophils # (Auto) 0.1 TH/MM3 Basophils # (Auto) 0.2 TH/MM3 CBC Comment AUTO DIFF Differential Comment AUTO DIFF CONFIRMED Blood Urea Nitrogen 22 MG/DL Creatinine 1.40 MG/DL Random Glucose 87 MG/DL Calcium Level 9.4 MG/DL Sodium Level 131 MEQ/L Potassium Level 5.0 MEQ/L Chloride Level 98 MEQ/L Carbon Dioxide Level 26.1 MEQ/L Anion Gap 7 MEQ/L Estimat Glomerular Filtration Rate 36 ML/MIN [facility] Medical Decision Making Medical Screen Exam Complete: Yes Emergency Medical Condition: Yes Differential Diagnosis NSTEMI, unstable angina, coronary vasospasm, PE, PTX, aortic dissection, pericarditis, myocarditis, endocarditis, PNA, esophageal disease, aneurysm, musculoskeletal etiologies, anxiety, cocaine/sympathomimetic abuse Narrative Course CBC & BMP Diagram 07/18/17 16:15 Calcium Level 9.4 The patient is resting comfortably and feels better, is alert and in no distress. The patients results and examination findings were discussed. The repeat examination is unremarkable and benign. The history, exam, diagnostic testing, and current condition do not suggest any significant pathology to warrant further testing, continued ED treatment, admission, or surgical evaluation at this point. The vital signs have been stable. The patient does not have uncontrollable pain, intractable vomiting, or other significant symptoms. The patient's condition is stable and appropriate for discharge. The patient will pursue further outpatient evaluation with a primary care physician or other designated or consulting physician as indicated in the discharge instructions. The patient expressed understanding and was agreeable with this plan. Diagnosis Primary Impression: Elevated blood pressure reading Additional Impression: Tachycardia Referrals: Primary Care Physician 2 days Additional Instructions: You have a choice when it comes to health care, and we are glad that you chose [facility]. Hopefully, we have met your expectations on today's visit. You are welcome to return to [facility] at any time, as we are committed to meeting the health care needs of our community. Disposition: 01 DISCHARGE HOME Condition: Antony Soler MD Jul 18, 2017 18:28
[2017-07-18] MEDS ORDERED: LORazepam 0.5 MG TAB PO ONE (19:15)
[2017-07-18 19:26] VITALS: BP 175/73
--- NOTE | 2017-07-19 18:20 | EKG ---
Date Performed: 07/18/2017 Time Performed: 15:19:05 PTAGE: 87 years EKG: Sinus rhythm NORMAL ECG PREVIOUS TRACING : 06/03/2017 13.04 DOCTOR: Lena Harman Interpretating Date/Time 07/19/2017 18:15:21
== END 2017-07-18 19:28 | disposition home or self-care (01) ==
LOC: PHED 14:17
DX: R00.0 Tachycardia, unspecified (principal); I10 Essential (primary) hypertension; J44.9 Chronic obstructive pulmonary disease, unspecified
CPT/HCPCS: 80048; 85025; 93005; 99284